=== PATIENT | male | born 1960 | race Caucasian/White ===

== ENCOUNTER 2024-12-07 13:42 | Emergency (ER) | payer OTHER ==
[2024-12-07 14:54] VITALS: BP 145/91; PULSE 87; RESP 20; TEMP 98.3; BMI 45.7
[2024-12-07] MEDS ORDERED: ACETAMINOPHEN 325 MG TABLET (FP) ONE (14:59)
[2024-12-07] MEDS ORDERED: LIDOCAINE 4% PATCH TP ONE (14:59)
[2024-12-07] MEDS: LIDOCAINE 5% TOPICAL PATCH TP ONE (15:06)
[2024-12-07] MEDS: ACETAMINOPHEN 500 MG TABLET (FP) PO ONE (15:06)
[2024-12-07 15:29] LABS: ABSOLUTE IMMATURE GRANULOCYTES 0.01 x10^3/uL (0.0-0.031); BASOPHILS # 0.05 x10^3/uL (0.01-0.08); EOSINOPHIL % 1.9 % (0.8-7.0); EOSINOPHILS # 0.12 x10^3/uL (0.04-0.54); HEMATOCRIT 41.6 % (40.1-51.0); HEMOGLOBIN 14.1 g/dL (13.7-17.5); MCHC 33.9 g/dl (32.3-36.5); MEAN CELL VOLUME 100.5 fl (79.0-92.2); MEAN PLT VOLUME 9.9 fl (9.4-12.4); MONOCYTE # 0.54 x10^3/uL (0.30-0.82); MONOCYTE % 8.6 % (5.3-12.2); PLATELET COUNT 228 x10^3/uL (163-337); RDW 12.3 % (12.2-16.4)
[2024-12-07 15:36] LABS: INR 1.05 (0.83-1.09); PROTHROMBIN TIME (PATIENT) 11.5 SEC (9.7-13.0)
[2024-12-07 15:39] LABS: ACTIVATED PTT 30.5 SECONDS (25.2-36.5)
[2024-12-07 16:15] LABS: CALCIUM 9.5 mg/dL (8.5-10.1)
[2024-12-07 16:16] LABS: BLOOD UREA NITROGEN 13.5 mg/dL (7-18)
[2024-12-07 16:19] LABS: CREATININE 0.8 mg/dL (0.55-1.3)
[2024-12-07 16:20] LABS: BILIRUBIN,TOTAL 0.5 mg/dL (0.2-1); TOT PROT 7.3 g/dl (6.4-8.2)
[2024-12-07] MEDS ORDERED: LIDOCAINE PATCH REMOVAL MC ONE (22:00)
== END 2024-12-07 16:40 | disposition home or self-care (01) ==
LOC: JER 13:42
DX: S50.12XA Contusion of left forearm, initial encounter (principal); X58.XXXA Exposure to other specified factors, initial encounter; Y93.H2 Activity, gardening and landscaping
CPT/HCPCS: 36415; 73030-TC-LT-FY; 73060-TC-LT-FY; 80053; 85025; 85610; 85730; 99284-25